=== PATIENT | female | born 1945 | race African-American/Black ===

== ENCOUNTER 2017-08-13 14:12 | Day surgery (SDC) | payer OTHER, MEDICAID ==
--- NOTE | 2017-08-13 09:26 | PDHPUP ---
History & Physical Update H&P update statement: This history and physical update is based on an assessment of the patient which was completed after admission or registration (within 24 hours), but prior to the surgery/procedure. H&P update: H&P reviewed & patient examined, no change in patient's condition since H&P completed
[2017-08-13] MEDS ORDERED: LR 1,000 ML IV ONE (14:27)
[2017-08-13] MEDS ORDERED: LIDOCAINE 1% 2 ML INJ ID PRN (14:27)
[2017-08-13 15:02] VITALS: PULSE 57
[2017-08-13] MEDS ORDERED: BUPIVACAINE 0.5% 10 ML SDV ONE (15:15)
[2017-08-13] MEDS ORDERED: NS 500 ML IV SCH ×2 (15:15→15:30)
[2017-08-13 15:55] LABS: PLATELET COUNT 213 10^3/uL (150-400)
--- NOTE | 2017-08-13 16:14 | PDANEPAE ---
ANE History of Present Illness 72 year old female for amputation of left index finger. ANE Past Medical History - Cardiovascular History Hx Hypertension: Yes Hx Arrhythmias: Yes Hx Chest Pain: No Hx Coronary Artery / Peripheral Vascular Disease: Yes Hx CHF / Valvular Disease: No Hx Palpitations: No Cardiovascular History Comment: PVD. htn. cad with 4 stents. paf. HIGH CHOL. left bka - Pulmonary History Hx COPD: No Hx Asthma/Reactive Airway Disease: No Hx Recent Upper Respiratory Infection: No Hx Oxygen in Use at Home: No Hx Sleep Apnea: No Sleep Apnea Screening Result - Last Documented: Negative Pulmonary History Comment: "spot on lung" - Neurologic History Hx Cerebrovascular Accident: Yes Hx Seizures: No Hx Dementia: No Neurologic History Comment: TIA. peripheral neuropathy - Endocrine History Hx Diabetes: Yes Endocrine History Comment: TYPE 2 - Renal History Hx Renal Disorders: Yes Renal History Comment: ESRD, on HD. saturday, saturday and saturday - Liver History Hx Hepatic Disorders: No Hepatic History Comment: 'FATTY LIVER'. PANCREATITIS - Neurological & Psychiatric Hx Hx Neurological and Psychiatric Disorders: No - Cancer History Hx Cancer: Yes Cancer History Comment: Breast R- R LUMPECTOMY 2010. followed by mastectomy. no chemo or radiation - Congenital Disorder History Hx Congenital Disorders: No - GI History Hx Gastrointestinal Disorders: Yes Gastrointestinal History Comment: Gastroparesis - Other Health History Other Health History: left pinky finger 10-17-16. infected on abx currently. wears glasses. FULL DENTURES - Chronic Pain History Chronic Pain: Yes (finger and hands) - Surgical History Prior Surgeries: left pinky finger amputated with [place] at [facility] 10-17;. Right toes amputated from foot. left BKA. Femoral popliteal bypass 2010. Mastectomy R. Hysterectomy. . tonsillectomy. bilateral carpal tunnel release anal fissure repair. X 13 SURG L FOOT. PHI CATARACTS ANE Review of Systems Review of systems is: negative Review of Systems: - Exercise capacity Exercise capacity: <4 METS METS (RN): 1 METS ANE Patient History - Allergies Allergies/Adverse Reactions: adhesive tape Allergy (Verified 08/12/17 15:46) ciprofloxacin [From Cipro] Allergy (Verified 08/12/17 15:46) dicyclomine Allergy (Verified 08/12/17 15:46) metformin Allergy (Verified 08/12/17 15:46) metoclopramide HCl [From Reglan] Allergy (Verified 08/12/17 15:46) TREMORS milk Allergy (Verified 08/12/17 15:46) JAYSON BANDAGES Allergy (Mild, Uncoded 06/01/13 20:13) Rash LACTOSE INTOL Allergy (Mild, Uncoded 06/01/13 20:13) LOOSE STOOLS - Home Medications Home medications: home medication list seen and reviewed Home Medications: Metoprolol Tartrate [Lopressor 25 mg (RX)] 12.5 mg PO BID 12/10/11 [Last Taken 08/13/17] Amiodarone HCl [Pacerone (*)] 200 mg PO DAILY 11/20/16 [Last Taken 1 Day Ago ~] Atorvastatin Calcium [Lipitor 40 mg (*)] 40 mg PO HS 11/20/16 [Last Taken 1 Day Ago ~08/12/17] Docusate Sodium [Stool Softener] 50 mg PO DAILY 11/20/16 [Last Taken 1 Day Ago ~ 08/12/17] Polyethylene Glycol 3350 [Miralax 17 gm (*)] 17 gm PO DAILY 11/20/16 [Last Taken 1 Day Ago ~08/12/17] Sennosides/Docusate Sodium [Senna-Docusate Sodium Tablet] 1 each PO BID [Last Taken 08/12/17] oxyCODONE IR [Oxycodone Ir (*)] 5 mg PO Q4H 11/20/16 [Last Taken 08/13/17] Neurontin 08/12/17 [Last Taken Unknown] Tylenol 325mg (*) 08/12/17 [Last Taken 08/13/17] - NPO status NPO Status: no food or drink >8 hours NPO Since - Liquids (Date): 08/13/17 NPO Since - Liquids (Time): 06:00 NPO Since - Solids (Date): 08/13/17 NPO Since - Solids (Time): 13:30 - Smoking Hx Smoking Status: Former smoker - Family Anes Hx Family Hx Anesthesia Complications: DAUGHTER- ITCHING W GEN ANESTH ANE Labs/Vital Signs - Labs Result Diagrams: 08/13/17 15:39 08/13/17 15:39 - Vital Signs Vital Signs: reviewed preoperatively; see RN documention for details Blood Pressure: 128/67 Heart Rate: 57 Respiratory Rate: 18 O2 Sat (%): 100 Height: 167.64 cm Weight: 65.317 kg ANE Physical Exam - Airway Neck exam: FROM Mallampati Score: Class 2 Mouth exam: poor dentition - Pulmonary Pulmonary: no respiratory distress - Cardiovascular Cardiovascular: regular rate and rhythym - ASA Status ASA Status: IV ANE Anesthesia Plan Anesthesia Plan: MAC Total IV Anesthesia: Yes
[2017-08-13] MEDS ORDERED: MIDAZOLAM 2 MG/2 ML VIAL ONE (16:25)
[2017-08-13] MEDS ORDERED: PROPOFOL 200 MG/20 ML VIAL ONE (16:25)
[2017-08-13] MEDS ORDERED: LIDOCAINE 1% 300 MG/30 ML SDV ONE (16:49)
[2017-08-13] MEDS ORDERED: fentaNYL 100 MCG/2 ML INJ IVP PRN (17:09)
[2017-08-13] MEDS ORDERED: NS 500 ML IV PRN (17:09)
[2017-08-13] MEDS ORDERED: NALOXONE HCL 0.4 MG/ML INJ IVP PRN (17:09)
[2017-08-13] MEDS ORDERED: BACITRACIN ZINC 14.2 GM OINTTUBE TP ONE (17:10)
--- NOTE | 2017-08-13 17:40 | POSTOPPROG ---
Post Op Note Date of Operation: 08/13/17 Surgeon: Remy Tripathi Anesthesiologist: Elvis Hernandez Anesthesia: IV Sedation Pre-op Diagnosis: left index finger gangrene Post-op Diagnosis: same Procedure: left index finger amputation, left thumb nail removal Findings: necrotic MIP/DIP Inf/Abcess present in the surg proc area at time of surgery?: No EBL: Minimal Specimen(s): phalynx
[2017-08-13 18:17] VITALS: RESP 16
--- NOTE | 2017-08-13 18:37 | GOP ---
[f rep st] OPERATIVE REPORT DATE OF OPERATION: 08/13/2017 SURGEON: Remy Tripathi MD ANESTHESIA: MAC. ANESTHESIOLOGIST: Elvis Hernandez MD PREOPERATIVE DIAGNOSIS: 1. End-stage renal disease. 2. Left upper extremity steal syndrome. 3. Left index finger gangrene. POSTOPERATIVE DIAGNOSIS: 1. End-stage renal disease. 2. Left upper extremity steal syndrome. 3. Left index finger gangrene. PROCEDURE PERFORMED: 1. Left index finger amputation. 2. Left thumb nail excision. FINDINGS: INDICATIONS: A 72-year-old female, with a longstanding history of end-stage renal disease and diabet es. She has suffered from symptoms of a steal syndrome. She has undergone a prior angioplasty with some improvement in her left hand vascularity. She has previously undergone a 5th ray amputation. S he has a distal index finger gangrene. She is undergoing surgical excision at this time. Risks and benefits were explained to her of bleeding, infection, wound failure, need for higher level amputatio n, as well as roles for fistula ligation. All questions were answered. She desires to proceed. Kaylin ross is also requesting her thumbnail to be removed given its ongoing pain and hyperkeratosis. DESCRIPTION OF PROCEDURE: Monitored anesthesia care was started. Digital blocks were applied upon t he thumb and index finger. A fishmouth incision was created along the index finger at the MP joint. Using electrocautery, soft tissues were taken down toward the MP joint proper. The nerves were rabago sected and allowed to retract. The arteries were divided using electrocautery. The soft tissues wer e also divided using electrocautery and the specimen removed intact. The defect was closed in layers with Vicryl suture and multiple interrupted simple nylon sutures. The thumb nail was loosened from the nail bed using a hemostat and manually avulsed. Remaining dry areas of eschar were removed, scat tered throughout bilateral hands. Satisfactory hemostasis was assured throughout the surgical sites. Sterile dressings were applied, and the patient taken to the recovery room awake uneventfully. /[id number]/MODL
[2017-08-13] MEDS ORDERED: oxyCODONE IR 5 MG TAB PO PRN (18:42)
[2017-08-13 20:51] VITALS: BP 130/64; TEMP 98.2; O2SAT 89
--- NOTE | 2017-08-14 13:39 | POSTANESTH ---
Post Anesthetic Evaluation Cardiovascular Status: Normal, Stable, Similar to Pre-Op Cond Respiratory Status: Similar to Pre-op Cond., Tx Decrease in SpO2 (Patient requires home O2 at baseline. (2L/min)) Level of Consciousness/Mental Status: Can Participate in Eval, Mildly Sleepy, Arousable Pain Control: Adequate, Prn Tx Ordered Nausea/Vomiting Control: Adequate, Prn Tx Ordered Complications Possibly Related to Anesthesia: None Noted
== END 2017-08-13 19:01 ==
LOC: FSGY 14:12
PROVIDERS: ATTEND Surgery
PROC: 0X6P0Z0 Detachment at Left Index Finger, Complete, Open Approach (ICD-10-PCS; principal; 2017-08-13 16:00)
PROC: 0HDQXZZ Extraction of Finger Nail, External Approach (ICD-10-PCS; principal; 2017-08-13 16:00)
DX: N18.6 End stage renal disease (principal); I70.268 Atherosclerosis of native arteries of extremities with gangrene, other extremity; I70.263 Atherosclerosis of native arteries of extremities with gangrene, bilateral legs; E13.9 Other specified diabetes mellitus without complications; F32.9 Major depressive disorder, single episode, unspecified; M79.646 Pain in unspecified finger(s); Z85.3 Personal history of malignant neoplasm of breast
CPT/HCPCS: J2250; J2704

== ENCOUNTER 2017-08-19 15:46 | Inpatient (IN) | payer OTHER, MEDICAID ==
--- NOTE | 2017-08-19 16:29 | EDPHY ---
H & P Stated Complaint: left hand pain s/p finger amputation [address] Tripathi Time Seen by Provider: 08/19/17 16:15 HPI/ROS: CHIEF COMPLAINT: Left hand pain post surgical amputation HISTORY OF PRESENT ILLNESS: 72-year-old female medical history significant for diabetes, renal dysfunction, postop day 5 post left 2nd and 5rd digit amputation secondary to gangrene by Dr. Remy Tripathi, arrives by ambulance from her half-way facility complaining of breakthrough pain to her left hand, new erythema. Pain not relieved with oral oxycodone. Patient is on a Saturday dialysis schedule receive dialysis this morning as normal. No erythema. No lymphangitic streaking. No fever no chills. No chest pain. No trauma. No urinary abnormality. Daughter, who arrives later in the patient's emergency department course, notes that the patient appears to be not acting her normal self. No slurred speech or gait instability but does appear to be experiencing new picking behavior and restlessness. REVIEW OF SYSTEMS: A ten point review of systems was performed and is negative with the exception of the items mentioned in the HPI PAST MEDICAL & SURGICAL HISTORY: Diabetes. Chronic kidney disease. Peripheral neuropathy. Atherosclerosis of [place] arteries of extremities with history of gangrene to the left 2nd and 3rd digit, postop day 5 SOCIAL HISTORY: Currently residing at a half-way facility PHYSICAL EXAM (Prior to examination, patient consented to physical exam, hands were washed and my usual and customary physical exam procedures followed) 1) GENERAL: Alert and oriented. Appears uncomfortable, requesting analgesia. Answering questions appropriately this 2) HEAD: Normocephalic, atraumatic 3) HEENT: Pupils equal, round, reactive to light bilaterally. Sclera anicteric. 4) NECK: Full range of motion, no meningeal signs. 5) LUNGS: Clear auscultation bilaterally, no wheezes, no rhonchi, no retractions. 6) HEART: Regular rate and rhythm, no murmur, no heave, no gallop. 7) ABDOMEN: No guarding, no rebound, no focal tenderness, 8) MUSCULOSKELETAL: Left upper extremity: Dressing taken down revealing surgical scars with no dehiscence, sutures in place, tender to palpation left 2nd 5th MCP with erythema and induration. Negative kanavel sign to the existing digits. no crepitus, no epitrochlear or axillary adenopathy. 9) BACK: No visual or palpable abnormality. 10) SKIN: No rash, no petechiae. 11) Psychiatric: Patient is oriented X 3, there is no agitation. 12) NEURO: Awake, alert, and oriented to person, place and time. Answers questions appropriately. There were no obvious focal neurologic abnormalities. No cerebellar dysfunction. Upper and lower extremities bilaterally with strength 5 / 5, reflexes 2+. DIFFERENTIAL DIAGNOSIS: In no particular include but limited to peripheral neuropathy, UTI, urosepsis, postsurgical pain, osteomyelitis, cellulitis, necrotizing fasciitis - Personal History Current Tetanus/Diphtheria Vaccine: Yes Current Tetanus Diphtheria and Acellular Pertussis (TDAP): Yes Tetanus Vaccine Date: unsure - Medical/Surgical History Hx Asthma: No Hx Chronic Respiratory Disease: No Hx Diabetes: Yes Hx Cardiac Disease: No Hx Renal Disease: Yes Hx Cirrhosis: No Hx Alcoholism: No Hx HIV/AIDS: No Hx Splenectomy or Spleen Trauma: No Other PMH: diabetes, neuropathy, amputation LLE, toes RLE, fingers LUE, renal failure/dialysis - Social History Smoking Status: Former smoker Constitutional: Initial Vital Signs Temperature (C) 36.5 C 08/19/17 15:59 Heart Rate 69 08/19/17 15:59 Respiratory Rate 18 08/19/17 15:59 Blood Pressure 134/48 H 08/19/17 15:59 O2 Sat (%) 93 08/19/17 15:59 O2 Delivery Mode Nasal Cannula O2 (L/minute) 2 Allergies/Adverse Reactions: adhesive tape Allergy (Verified 08/12/17 15:46) ciprofloxacin [From Cipro] Allergy (Verified 08/12/17 15:46) dicyclomine Allergy (Verified 08/12/17 15:46) metformin Allergy (Verified 08/12/17 15:46) metoclopramide HCl [From Reglan] Allergy (Verified 08/12/17 15:46) TREMORS milk Allergy (Verified 08/12/17 15:46) JAYSON BANDAGES Allergy (Mild, Uncoded 06/01/13 20:13) Rash LACTOSE INTOL Allergy (Mild, Uncoded 06/01/13 20:13) LOOSE STOOLS Home Medications: Medication Instructions Recorded Metoprolol Tartrate [Lopressor 25 12.5 mg PO BID 12/10/11 mg (RX)] Amiodarone HCl [Pacerone (*)] 200 mg PO DAILY 11/20/16 Atorvastatin Calcium [Lipitor 40 40 mg PO HS 11/20/16 mg (*)] Docusate Sodium [Stool Softener] 50 mg PO DAILY 11/20/16 Polyethylene Glycol 3350 [Miralax 17 gm PO DAILY 11/20/16 17 gm (*)] Sennosides/Docusate Sodium 1 each PO BID 11/20/16 [Senna-Docusate Sodium Tablet] oxyCODONE IR [Oxycodone Ir (*)] 5 mg PO Q4H 11/20/16 Neurontin 08/12/17 Tylenol 325mg (*) 08/12/17 Medical Decision Making ED Course/Re-evaluation: 4:29 p.m.: Old medical records reviewed. Care of patient under supervision of secondary supervising physician Dr Butt with whom I discussed case . 5:04 p.m.: I was informed by the nurse that the patient a brief episode of epistaxis and nasal clip was placed. I re-evaluated the patient at this time, she had taken her nasal clip off and was currently hemostatic. There is an area of friability right nostril with no active bleeding. 5:25 p.m.: Phone consultation with Dr. Remy Tripathi the patient's surgeon. There is erythema at her suture site. He recommended dose of vancomycin in the ER and discharged back to her half-way facility. The patient is on a Saturday dialysis schedule. Today is Saturday. She received dialysis this morning. 6:10 p.m.: Patient has a calculated creatinine clearance of 11. She has will subsequently be given vancomycin 15 milligrams/kilogram. 6:15 p.m. patient has return of right-sided epistaxis. I have placed TXA a soaked pledget and will re-evaluate patient. 7:10 p.m.: Consultation with hospitalist will admit patient for concerns over cellulitis to the left hand. Patient does not meet sepsis screening stick criteria 7:13 p.m.: Consultation with Dr. Remy Tripathi who will consult on the patient 7:16 pm nasal packing removed patient is hemostatic - Data Points Laboratory Results: Laboratory Results 03/19/18 16:30 18 16:30 08/19/17 08/19/17 08/19/17 19:00 16:30 16:30 WBC 25.42 10^3/uL H 10^3/uL (3.80-9.50) RBC 3.78 10^6/uL L 10^6/uL (4.18-5.33) Hgb 10.8 g/dL L g/dL (12.6-16.3) Hct 34.3 % L % (38.0-47.0) MCV 90.7 fL fL (81.5-99.8) MCH 28.6 pg pg (27.9-34.1) MCHC 31.5 g/dL L g/dL (32.4-36.7) RDW 15.9 % H % (11.5-15.2) Plt Count 206 10^3/uL 10^3/uL (150-400) MPV 10.2 fL fL (8.7-11.7) Neut % (Auto) 91.3 % H % (39.3-74.2) Lymph % (Auto) 2.0 % L % (15.0-45.0) [place] % (Auto) 5.2 % % (4.5-13.0) Eos % (Auto) 0.4 % L % (0.6-7.6) Baso % (Auto) 0.4 % % (0.3-1.7) Nucleat RBC Rel Count 0.0 % % (0.0-0.2) Absolute Neuts (auto) 23.22 10^3/uL H 10^3/uL (1.70-6.50) Absolute Lymphs (auto) 0.50 10^3/uL L 10^3/uL (1.00-3.00) Absolute Monos (auto) 1.32 10^3/uL H 10^3/uL (0.30-0.80) Absolute Eos (auto) 0.10 10^3/uL 10^3/uL (0.03-0.40) Absolute Basos (auto) 0.09 10^3/uL 10^3/uL (0.02-0.10) Absolute Nucleated RBC 0.00 10^3/uL 10^3/uL (0-0.01) Immature Gran % 0.7 % % (0.0-1.1) Immature Gran # 0.19 10^3/uL H 10^3/uL (0.00-0.10) Sodium 129 mEq/L L mEq/L (135-145) Potassium 4.1 mEq/L mEq/L (3.5-5.2) Chloride 89 mEq/L L mEq/L (97-110) Carbon Dioxide 25 mEq/l mEq/l (22-31) Anion Gap 15 mEq/L mEq/L (8-16) BUN 24 mg/dL H mg/dL (7-23) Creatinine 2.1 mg/dL H mg/dL (0.6-1.0) Estimated GFR 23 Glucose 106 mg/dL H mg/dL (70-100) Calcium 8.5 mg/dL mg/dL (8.5-10.4) Urine Color LUZ Urine Appearance MODERATELY TURBID Urine pH 7.0 (5.0-7.5) Ur Specific [place] 1.015 (1.002-1.030) Urine Protein 2+ H (NEGATIVE) Urine Ketones NEGATIVE (NEGATIVE) Urine Blood 2+ H (NEGATIVE) Urine Nitrate NEGATIVE (NEGATIVE) Urine Bilirubin NEGATIVE (NEGATIVE) Urine Urobilinogen NEGATIVE EU EU (0.2-1.0) Ur Leukocyte Esterase 3+ H (NEGATIVE) Urine RBC 25-50 /hpf H /hpf (0-3) Urine WBC 50-182 /hpf H /hpf (0-3) Ur Epithelial Cells 2+ /lpf H /lpf (NONE-1+) Ur Renal Epithelial Cell OCCASIONAL /hpf H /hpf (NONE SEEN) Urine Bacteria 3+ /hpf H /hpf (NONE SEEN) Urine Glucose NEGATIVE (NEGATIVE) Medications Given: Discontinued Medications Hydromorphone HCl (Dilaudid) 1 mg IVP EDNOW ONE Stop: 08/19/17 16:31 Last Admin: 08/19/17 16:42 Dose: Not Given Hydromorphone HCl (Dilaudid) 1 mg IVP EDNOW ONE Stop: 08/19/17 16:44 Last Admin: 08/19/17 16:44 Dose: 1 mg Vancomycin/Sodium Chloride (Vancomycin 1 Gm (Premix)) 250 mls @ 250 mls/hr IV EDNOW ONE PRN Reason: Protocol Stop: 08/19/17 19:10 Last Admin: 08/19/17 18:58 Dose: Not Given Vancomycin HCl 1 gm/ Sodium (Chloride) 250 mls @ 250 mls/hr IV ONCE ONE Stop: 08/19/17 19:59 Last Admin: 08/19/17 18:55 Dose: 250 mls Lorazepam (Ativan Injection) 1 mg IVP EDNOW ONE Stop: 08/19/17 16:31 Last Admin: 08/19/17 16:44 Dose: 1 mg Tranexamic Acid (Cyklokapron) 500 mg TP EDNOW ONE Stop: 08/19/17 18:15 Last Admin: 08/19/17 18:56 Dose: 500 mg Departure - Departure Disposition: [facility] Acute Clinical Impression: Cellulitis of left hand Urinary tract infection Qualifiers: Urinary tract infection type: acute cystitis Hematuria presence: with hematuria Qualified Code(s): N30.01 - Acute cystitis with hematuria Condition: Fair
[2017-08-19] MEDS ORDERED: LORazepam 2 MG/ML INJ IVP ONE (16:30)
[2017-08-19] MEDS ORDERED: HYDROmorphONE/DILAUDID 1 MG/ML INJ IVP ONE (16:30)
[2017-08-19] MEDS ORDERED: HYDROmorphONE/DILAUDID 2 MG/ML INJ ONE (16:37)
[2017-08-19] MEDS ORDERED: HYDROmorphONE/DILAUDID 2 MG/ML INJ IVP ONE (16:43)
[2017-08-19 17:39] LABS: PLATELET COUNT 206 10^3/uL (150-400)
[2017-08-19] MEDS ORDERED: VANCOMYCIN HCL/NORMAL SALINE 250 ML IV ONE (18:11)
[2017-08-19] MEDS ORDERED: TRANEXAMIC ACID 1,000 MG/10 ML VIAL TP ONE (18:14)
[2017-08-19] MEDS ORDERED: VANCOMYCIN 1 GM in NS 250 ML IV ONE (19:00)
[2017-08-19] MEDS ORDERED: D50W 25 GM/50 ML VIAL IVP PRN (22:55)
[2017-08-19] MEDS: oxyCODONE IR 5 MG TAB PO PRN (23:35)
--- NOTE | 2017-08-19 23:58 | GHP ---
[f rep st] HISTORY AND PHYSICAL DATE OF ADMISSION: 08/19/2017 CHIEF COMPLAINT: Left hand pain. HISTORY: The patient is a 72-year-old female with a history of a left upper extremity subclavian ann marie al syndrome, which resulted in left index finger gangrene. She underwent amputation with Dr. Tripathi on August 13. Yesterday, she developed worsening pain in the left hand with worsening erythema. Per ismael flores, she is more confused than normal. She had 2 brief episodes of epistaxis in the emergency ro om. She received hemodialysis this morning. Her medical condition is otherwise without change. PAST MEDICAL HISTORY: 1. End-stage renal disease, Saturday, Saturday, Saturday. 2. 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 3. Diabetes. 4. Peripheral vascular disease, status post left BKA and right transmetatarsal foot amputation. 5. Breast cancer. 6. Depression. 7. Diabetic neuropathy. 8. Atrial fibrillation. 9. Coronary artery disease. MEDICATIONS: Please see computerized record for full detailed list. ALLERGIES: Cipro. SOCIAL HISTORY: She is a permanent jail resident at [facility]. She has a daughter. carlos has a MOLST form that states DNR. REVIEW OF SYSTEMS: Complete review of systems obtained. Review of systems negative regarding consti tutional, HEENT, GI, pulmonary, cardiovascular, , hematology, skin, musculoskeletal, endocrine, and psych except for positives and negatives as in HPI. FAMILY HISTORY: Reviewed and noncontributory to the presenting complaint. PHYSICAL EXAMINATION: GENERAL: Well-developed, well-nourished female, in no acute distress. VITAL SIGNS: Temperature 36.9, pulse 65, blood pressure 129/46, saturating 98% on 2 L. EYES: Normal conj unctivae. Pupils reactive to light. ENT: Normal ears, nose. Hearing intact. Normal teeth. Oroph arynx moist. NECK: Trachea midline. No thyromegaly. CHEST: Normal . LUNGS: Clear to auscultation bilaterally. CARDIOVASCULAR: Regular rhythm. No murmur. 2+ lower extremity edema to the right lower extremity. ABDOMEN: Soft, nontender. No hepatosplenomegaly. SKIN: Her hand shows post amputation with sutures in place. No obvious purulent discharge. There is erythema and extrem e tenderness to palpation. MUSCULOSKELETAL: No cyanosis or clubbing. Strength is 5/5 upper and low er extremities. NEURO: Cranial nerves intact. Normal sensation to light touch. PSYCH: Alert and oriented x3. Normal affect. Normal judgment and insight. Normal memory. LABORATORY DATA: White count 25.4, 34.3, platelets 206. Sodium 129, potassium 4.1, chlor den 89, bicarb 25, BUN 24, creatinine 2.1, glucose 106. MEDICAL RECORDS REVIEWED: She was just discharged from Dr. Tripathi's service after a left finger amputat ion on August 13. ASSESSMENT AND PLAN: 1. Postoperative hand infection, status post amputation. Dr. Tripathi has been consulted and will see he r. Continue IV vancomycin. We will consult Infectious Disease. 2. End-stage renal disease. She received hemodialysis today. If she remains in the hospital, Nephr ology will need to be consulted as she is due for her next hemodialysis next Saturday. 3. Diabetes, diet controlled. We will check a hemoglobin A1c. 4. Peripheral vascular disease. Baby aspirin, and we will check lipid panel. 5. Metabolic encephalopathy. This is due to her infection. This should improve with adequate infec tion treatment. CODE STATUS: DNR. ADMISSION STATUS: We will admit to observation, and reevaluate tomorrow regarding ongoing need for h ospitalization. DVT PROPHYLAXIS: She is high risk. We will place her on subcu Lovenox. /[id number]/MODL
[2017-08-20] MEDS: oxyCODONE IR 5 MG TAB PO PRN ×4 (05:01→21:53)
[2017-08-20] MEDS: HEPARIN 5,000 UNIT/0.5 ML INJ SC SCH ×3 (05:09→21:53)
[2017-08-20 05:34] LABS: PLATELET COUNT 214 10^3/uL (150-400)
[2017-08-20] MEDS: HYDROmorphone HCL/NS 0.5 MG/ML SYR IVP PRN (05:56)
[2017-08-20] MEDS: INSULIN REGULAR HUMAN 100 UNIT/ML UNIT SC SCH ×4 (07:54→21:55)
[2017-08-20] MEDS: ASPIRIN EC 81 MG TAB PO SCH (09:42)
--- NOTE | 2017-08-20 10:13 | HOSPPROG ---
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 She had amputation w Dr Tripathi. She developed worsening pain in left hand w erythema. Today is my first encounter with the patient. Chart reviewed. Reviewed her care w Dr Oneal. *Left hand cellulitis/ post op infection -on clindamycin & Vancomycin -has crepitus -Dr Tripathi saw and evaluated -appreciate ID -evaluation of her fistula -will need a tunneled catheter for dialysis, but this is pending until infection managed *leukocytosis -due to the above *ESRD -Dr Oneal seeing her today -dialysis tomorrow *PVD -s/p BKA and right transmetatarsal foot amputation *Diabetes -morning glucose stable *Mild hyponatremia -follow labs *HTN -bp is low *Pain/significant due to the above -patient said morphine helps the most, have added this -also, prn Dilaudid has been added *DVT prophylaxis: heparin tid *Plan: patient will require another midnight stay to treat infection and further procedures; this will make her IP status. Will order a Palliative care consult. Subjective: Cheryl Miranda is tearful about the pain. Objective: Vital Signs Temp Pulse Resp BP Pulse Ox 37.2 C 60 18 108/80 99 08/20/17 08:15 08/20/17 08:15 08/20/17 08:15 08/20/17 08:15 08/20/17 08:15 Laboratory Results 08/20/17 05:15 08/20/17 05:15 08/19/17 08/20/17 08/21/17 05:59 05:59 05:59 Intake Total 850 Balance 850 - Physical Exam Constitutional: chronically ill appearing, No no apparent distress, No not in pain Eyes: PERRL Ears, Nose, Mouth, Throat: hearing normal Respiratory: no respiratory distress Skin: warm, other (left hand with eythema, swelling, extremely tender/ patient is requesting for her hand not to be touched) Musculoskeletal: generalized weakness Neurologic: AAOx3 Psychiatric: other (tearful) ICD10 Worksheet Patient Problems: Problems Problem Status Onset Cellulitis of left hand Acute Urinary tract infection Acute Anemia Active Cellulitis of foot Active Cellulitis of knee Active Diabetes mellitus type 2 Active Essential hypertension Active Gangrene of foot Active Peripheral arterial occlusive disease Active
[2017-08-20] MEDS: CLINDAMYCIN 600 MG/DEXTROSE 50 ML IV SCH ×3 (10:42→21:54)
--- NOTE | 2017-08-20 13:11 | GCON ---
[f rep st] CONSULTATION NEPHROLOGY CONSULTATION DATE OF CONSULTATION: 08/20/2017 REASON FOR CONSULTATION: Left hand postoperative infection and ischemia, history of end-stage renal disease. HISTORY OF PRESENT ILLNESS: The patient is a 72-year-old female with a past medical history signific ant for end-stage renal disease secondary to diabetes, along with severe peripheral vascular disease and multiple diabetic complications. She dialyzes under the care of Dr Nikhil Villaseñor at the [facility] on a Saturday, Saturday, Saturday schedule. The patient presents at this time with severe pain, erythema, and crepitus in the dorsum of her left hand following amputation of an ischemic left index finger. The patient is currently on the hospital ist service, and being followed by Dr Tripathi and Dr Jiang of the Infectious Disease service. The patient underwent the surgery on August 13, and presented on the with confusion, leukocytosis, and severe left hand pain. In her hand, she had erythema and crepitus. She has been treated with vancomycin. 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 The patient has no left uln ar artery. Her right radial artery does have a focal stenosis. It was angioplastied at [facility] last year, and again recently. In spite of this, she has had ongoing ischemic issues in t he right hand. The right hand has become more consistently painful. Relating to her dialysis, her runs have been stable. She has had stable hemodynamics. The patient i s quite debilitated at this point, and living in a retirement facility. Her quality of life has been greatly diminished in recent times. Currently, the patient is afebrile. The area of hand erythema has reportedly improved. She continue s to have some crepitus. Again, she is being followed closely by Dr. Tripathi and Dr. Roman. As relating to the above issues, we are asked by the Infectious Disease service to assist the patient's renal di agnosis and management of end-stage renal disease. PAST MEDICAL HISTORY: 1. End-stage renal disease, on hemodialysis on a Saturday, Saturday, Saturday schedule at the [facility] under the care of Dr Nikhil Villaseñor. 2. 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 3. Diabetes mellitus. 4. Peripheral vascular disease. 5. Breast cancer. 6. Depression. 7. Diabetic neuropathy. 8. Atrial fibrillation. 9. Coronary artery disease. CURRENT MEDICATIONS: Aspirin 81 mg daily, clindamycin IV q.8 hours, heparin 5000 units subcu q.8 jessica rs, Dilaudid p.r.n., insulin sliding scale, Oxy IR q.4 hours, vancomycin as prescribed. ALLERGIES: Ciprofloxacin. SURGICAL HISTORY: 1. Multiple arterial interventions. 2. Right foot transmetatarsal amputation. 3. Left AKA. 4. Foot amputations. 5. Femoral-popliteal bypass. 6. Mastectomy. 7. Hysterectomy. 8. . 9. Tonsillectomy. 10. Trigger finger release. 11. Carpal tunnel release. 12. Anal fissure repair. FAMILY HISTORY: Noncontributory. SOCIAL HISTORY: The patient is presently living at [facility]. A very supp ortive daughter is at bedside. She does not actively smoke cigarettes or drink alcohol. REVIEW OF SYSTEMS: The patient is having chills. Her appetite is stable. She denies headaches. Sh e wears corrective lenses. She states her vision has recently been blurry. She wears chronic oxygen at 2 L per nasal cannula. She denies rhinitis or sore throat. She denies cough or shortness of derick ath. She denies chest pain. She has chronic constipation. She is aneuric. She has chronic right l ower extremity edema. She has the aforementioned skin changes. She has diabetic neuropathy. PHYSICAL EXAM: VITAL SIGNS: Temperature is 37.2, pulse 60, blood pressure 108/80. EYES: Sclerae a re clear. OROPHARYNX: Edentulous and clear. NECK: No lymphadenopathy or thyromegaly. LUNGS: Tank ar to auscultation bilaterally. CARDIOVASCULAR: Irregular rhythm. ABDOMEN: Nontender. /RECTAL: Deferred. EXTREMITIES: 2 to 3+ right lower extremity edema. INTEGUMENT: The patient's left hand has an area of erythema extending on the dorsum approximately 4-5 cm. This apparently is improved s jessica yesterday. She does have crepitus over the dorsum of her left hand in the area of the incision. It is quite painful to touch. LABORATORY STUDIES: White count 27, hematocrit 32.4, platelets 214. Sodium 132, potassium 4, bicarb 26, creatinine 2.9. IMPRESSION AND PLAN: 1. Left hand postoperative infection and chronic ischemia. The patient is being treated with clinda mycin and vancomycin. She is being followed by Dr Tripathi and Dr Jiang. She appears to be clinically impr oving. She is having some mild delirium with this. 2. I did review her issues with Dr Villaseñor. At this point, we are in agreement with Dr Tripathi that the m ost appropriate course of action is ligation of her left upper extremity fistula. This would then re quire placement of a subclavian catheter. We will ensure her infection is under control before placi ng a tunneled catheter. This information was communicated with Dr Tripathi. 3. End-stage renal disease. The patient will dialyze tomorrow according to schedule. 4. Anemia. The patient's hemoglobin is appropriate and she does not require an MARY at this time. 5. Hypertension. This is at goal. PLAN OF CARE: I would agree that the patient's quality of life is very poor at this time. I would a gree with palliative care consultation. Thank you for allowing us to participate in the patient's care. We will continue following closely chi sullivan. /[id number]/MODL
--- NOTE | 2017-08-20 14:01 | GCON ---
[f rep st] CONSULTATION DATE OF CONSULTATION: 08/20/2017 REFERRING PHYSICIAN: Trina Chery MD REASON FOR CONSULTATION: Left hand pain and hallucinations. HISTORY OF PRESENT ILLNESS: This is a 72-year-old female with a past medical history significant for end-stage renal disease on dialysis Saturday, Saturday, and Saturday, followed by Dr. Villaseñor; subclavian steal syndrome to the left upper extremity; diabetes mellitus; peripheral vascular disease, who had a recent left index finger amputation after gangrene developed there last week. The amputation was d one on August 13. She was [facility] back to the [facility] and was sent back yesterday after incre asing pain in the left hand with increasing redness. Patient is sort of intermittently confused and is complaining of excruciating pain involving the left hand. She has also developed a blood blister on the palmar aspect. She came in with a white blood cell count of 25,000 with a left shift. Blood cultures in 2 sets were drawn, and they are pending. She had a urinalysis done, however, that was sh owing some pyuria although there was 2+ epithelial cells. Cultures are pending as well. She was giv en a dose of vancomycin yesterday evening. White blood cell count today is 27,000 with an ongoing le ft shift. She has a temperature of 99 today, and she continues to complain of increasing pain. Infe ctious Disease is now consulted for further evaluation and opinion. REVIEW OF SYSTEMS: GENERAL: She denies any fevers or shaking chills. HEAD: No headaches. EYES: She does have some change in vision, which is chronic. HEENT: No sore throat, difficulty swallowing , ear pain or drainage. CARDIOVASCULAR: No chest pain or rapid heartbeat. RESPIRATORY: No shortne ss of breath, cough, or sputum production. ABDOMEN: No nausea, vomiting, abdominal pain, or diarrhe a. : She does not make a lot of urine. EXTREMITIES: She is complaining of left hand pain extend ing down to the wrist. MUSCULOSKELETAL: As above. SKIN: Redness developing around her surgical si te. PAST MEDICAL HISTORY: Significant for end-stage renal disease, followed by Dr. Villaseñor with dialysis o n Saturday, Saturday, Saturday; subclavian steal syndrome to the left lower extremity; diabetes mellitus ; peripheral vascular disease; breast cancer; depression; diabetic neuropathy; atrial fibrillation; c oronary disease. PAST SURGICAL HISTORY: Significant for left fem-pop bypass, left BKA, mastectomy, hysterectomy, C-se ction, tonsillectomy, trigger finger release, carpal tunnel release, anal fissure repair, right foot amputation. ALLERGIES: Cipro with unknown reaction. Patient cannot give me any details. SOCIAL HISTORY: She lives in a fdc in [place]. Her daughter is local. She denies any s moking or alcohol. FAMILY HISTORY: Significant for diabetes mellitus. MEDICATIONS: As per AUG. PHYSICAL EXAMINATION: VITAL SIGNS: 37.2, pulse is 60, blood pressure 108/80, respiratory rate is 18 , saturations are 99% on 1 L O2 via nasal cannula. GENERAL: She is sitting up in bed complaining of excruciating pain involving her left hand and fingers. HEENT: Head is normocephalic, atraumatic. Eyes without conjunctival injection. No petechiae noted. Oropharynx is clear. CARDIOVASCULAR: S1, S2. Regular rate and rhythm. She has murmur appreciated. RESPIRATORY: Clear to auscultate bilate rally. No rhonchi or rales appreciated. ABDOMEN: Positive bowel sounds in all 4 quadrants. Soft, nontender, nondistended. EXTREMITIES: Right TMA with a heel wound, which is dry and crusted in natu re. No erythema noted there. Left BKA noted. Left hand with her 5th finger amputated and her index finger amputated as well. She has sutures in place with some hyperemia around the area, does not lo ok frankly cellulitic and it is not wildly hot or anything. It is mildly warm. She has swelling ext ending into the hand down to the wrist with some crepitus appreciated. There is a hemorrhagic bliste r on the palmar aspect which is tender to her. She has multiple chronic wounds all over her body. LABORATORIES: White blood cell count is 27.0, hemoglobin 10.5, platelets 214, neutrophil count is 88 %. Sodium 130, potassium 4.0, chloride 92, bicarb 26. BUN is 14, creatinine is 2.9. Urinalysis: 2 + ketones, 3+ leukocyte esterase, urine RBCs 25-50, urine WBCs 50-182, 2+ epithelial cells, 3+ bacter ia. Blood cultures x2 sets are pending. Urine culture pending. IMAGING: None has been done. ASSESSMENT: 1. Left hand pain with erythema and crepitus. 2. Leukocytosis with left shift. 3. Recent left index finger amputation. 4. Renal insufficiency with end-stage renal disease. PLAN: Patient had been given a dose of vancomycin yesterday. White blood cell count is higher than yesterday. Patient continues to complain of excruciating pain. She apparently does have a chronic p ain syndrome, so it is difficult to understand the gravity of her pain. At this point, would recomme nd a stat x-ray to assess for gas in the tissue. Will also keep in mind that she had a recent amputa tion. Will follow cultures closely. Will add clindamycin. Dr. Tripathi did open up a couple of sutures this morning. Fluid did not gush out at that point. I tried to see if we could express some fluid o ut, but this caused excruciating pain to the patient. Discussed whether a CT would help us with lidia tional information. Dr. Tripathi elected to hold off at this point. We will follow cultures closely. We will check a random vancomycin level at present. If it is less than 15, we will re-dose vancomycin. I thank you very much for providing this opportunity to care for your patient consultation. Carolina lozano rdinated with her RN and the Nephrology service. /[id number]/MODL
--- NOTE | 2017-08-20 14:49 | PDMN ---
Medical Necessity Medical necessity: change to IP; los>2mn for L hand cellulitis/ post op infection r/t L index finger amputation; requires IV abx, and dialysis, tunneled catheter when infection managed; comorbid ESRD, HTN, DM, PVD; per order and progress note 08/20/17
--- NOTE | 2017-08-20 18:41 | GCON ---
[f rep st] CONSULTATION DATE OF CONSULTATION: 08/20/2017 REASON FOR CONSULTATION: Left hand pain, possible wound infection. HISTORY OF PRESENT ILLNESS: 72-year-old female with a longstanding history of end-stage renal disease. She has a significant history of peripheral arterial disease, status post a remote left femoral above-knee popliteal artery bypass. She ultimately succumbed to a left below-knee amputation secondary to nonhealing diabetic infections. She has also undergone a right transmetatarsal amputation and is receiving dialysis through a left upper extremity basilic vein transposition fistula placed in 2011. She has had issues with ongoing steal syndrome with multiple digital amputations, most recently, her left index finger. Her vascular runoff discloses an occluded left ulnar artery with a stenotic radial artery. She was readmitted to the hospitalist service last evening with worsening [id number] hand pain and concerns for possible wound infection. Surgery has been requested for further recommendations. At the present time, patient reports a diffuse left hand pain which is chronic for her. She is without other specific complaints. PAST MEDICAL HISTORY: Breast cancer, diabetes, bilateral SFA occlusive disease , left upper extremity steal syndrome, history of gastritis, depression, diabetic neuropathy, atrial fibrillation, coronary artery disease. PAST SURGICAL HISTORY: Left upper extremity basilic vein transposition fistula , right foot and transmetatarsal amputation, left above-knee amputation, left femoral to above-knee popliteal artery bypass, mastectomy, hysterectomy, C- section, tonsillectomy, trigger finger release, carpal tunnel release, anal sphincterotomy. MEDICATIONS: Aspirin, clindamycin, vancomycin, insulin, OxyIR?, gabapentin. ALLERGIES: Ciprofloxacin, lactose, Bentyl, Reglan. SOCIAL HISTORY: Patient lives in a shelter facility. PHYSICAL EXAMINATION: VITAL SIGNS: Temperature 37, blood pressure 108/80, pulse 60, respirations 18. GENERAL: Patient is alert, appropriate, appears to be in her usual state of discomfort. HEART: Regular. LUNGS: Clear. ABDOMEN : Soft. EXTREMITIES: Left upper extremity incision healing nicely. No appreciable erythema, rather appropriate dorsal hand ecchymosis. Mild crepitus is present with suture removal. No fluid, purulence, or drainages is identified beneath her skin flaps. Palmar blister related to postsurgical edema is present. The hand is otherwise pink and warm. LABORATORY DATA: White count 27, hemoglobin 11, platelets 214. IMPRESSION: Chronic left upper extremity steal syndrome with progressively ischemic left hand, status post index finger amputation for gangrene. Her wound clinically shows no significant cellulitis or purulence. She has been empirically placed on vancomycin given her leukocytosis. Recommend increasing her previously recommended doses of gabapentin for her chronic neuropathy. Care plan was later discussed this morning with Dr. Oneal whose team is in support of fistula ligation at this point in time. This will require the patient to have a lifelong catheter placement for further hemodialysis needs. I would also recommend a palliative care consultation to discuss further care options given the patient's progressive physical decline and longstanding history of depression and generalized failure to thrive. Findings and recommendations were discussed at bedside with Dr. Jiang. /[id number]/MODL MTDKali
[2017-08-20] MEDS: GABAPENTIN 100 MG CAP PO SCH (21:54)
[2017-08-21 05:03] LABS: PLATELET COUNT 188 10^3/uL (150-400)
[2017-08-21] MEDS: HYDROmorphone HCL/NS 0.5 MG/ML SYR IVP PRN ×3 (06:22→15:11)
[2017-08-21] MEDS: CLINDAMYCIN 600 MG/DEXTROSE 50 ML IV SCH ×2 (06:22→18:25)
[2017-08-21] MEDS: HEPARIN 5,000 UNIT/0.5 ML INJ SC SCH ×3 (06:23→21:35)
[2017-08-21] MEDS: oxyCODONE IR 5 MG TAB PO PRN ×4 (06:26→22:27)
[2017-08-21] MEDS: ASPIRIN EC 81 MG TAB PO SCH (09:18)
[2017-08-21] MEDS: GABAPENTIN 100 MG CAP PO SCH ×3 (09:18→21:35)
[2017-08-21] MEDS: INSULIN REGULAR HUMAN 100 UNIT/ML UNIT SC SCH ×4 (09:19→21:50)
--- NOTE | 2017-08-21 12:09 | ASMTCMCOM ---
CM Note CM Note Notes: Patient admitted for an infected surgical site. She had her 2nd and 5th digits amputated by Dr Tripathi on 08/13/17(secondary to gangrene) and is complaining of pain and erythema to the site. Dr Tripathi, hospital medicine, nephrology, and ID are following. Patient lives at [facility]. She has a local daughter. She is a chronic dialysis patient on a MWF schedule at the [facility] (Dr Nikhil Villaseñor). A palliative care consult might be appropriate; I have notified hospitalist. Case Management will follow. Date Signed: 08/20/2017 03:07 PM Electronically Signed By:Gail Jim RN
--- NOTE | 2017-08-21 13:34 | SOAPPROG ---
SOAP Progress Note Assessment/Plan: Assessment: ESRD, HD today PVOD, multiple amputations Vascular steal syndrome from her AVF resulting in ischemic digits and amputations infected finger/hand, on vanco and Clindamycin deconditioned; consider PT/possible palliative care Plan: Ligate AVF Permanent tunneled HD catheter pain control antibiotics palliative care seems reasonable 08/21/17 13:31 Subjective: having a fair amount of pain in hand no cp sob nausea or vomiting tired, not sleeping well appetite not great energy poor spirits are, however, good Objective: Vital Signs Temp Pulse Resp BP Pulse Ox 36.6 C 61 18 118/61 92 08/21/17 12:35 08/21/17 12:35 08/21/17 12:35 08/21/17 12:35 08/21/17 12:35 Laboratory Results 08/21/17 04:50 08/20/17 08/21/17 08/22/17 05:59 05:59 05:59 Intake Total 450 Balance 450 Physical Exam - Physical Exam General Appearance: alert, other (chronically ill appearing) Respiratory: No rhonchi, No wheezing, No pleural rub Cardiac/Chest: regular rate, rhythm, edema, systolic murmur, No friction rub Abdomen: normal bowel sounds, non-tender, soft Skin: other (signs of infecton of L hand) Extremities: other (hand distal to fistula is very sore) Neuro/Psych: alert, oriented x 3 ICD10 Worksheet Patient Problems: Problems Problem Status Onset Cellulitis of left hand Acute Urinary tract infection Acute Anemia Active Cellulitis of foot Active Cellulitis of knee Active Diabetes mellitus type 2 Active Essential hypertension Active Gangrene of foot Active Peripheral arterial occlusive disease Active
--- NOTE | 2017-08-21 15:21 | ASMTCMCOM ---
CM Note CM Note Notes: Pt dialyzed today. Palliative scheduled tomorrow 08/22/17 at noon w dghtr and son participating by phone. Updates sent to [facility]. Pt moved to this afternoon. Date Signed: 08/21/2017 03:20 PM Electronically Signed By:HARLEY Landrum
--- NOTE | 2017-08-21 16:08 | HOSPPROG ---
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 She had amputation w Dr Tripathi. She developed worsening pain in left hand w erythema. 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 Objective: Vital Signs Temp Pulse Resp BP Pulse Ox 36.6 C 61 18 118/61 92 08/21/17 12:35 08/21/17 12:35 08/21/17 12:35 08/21/17 12:35 08/21/17 12:35 Laboratory Results 08/21/17 04:50 08/20/17 08/21/17 08/22/17 05:59 05:59 05:59 Intake Total 450 Balance 450 - Physical Exam Constitutional: chronically ill appearing, other (thin and frail) Eyes: PERRL Ears, Nose, Mouth, Throat: hearing normal Cardiovascular: regular rate and rhythym Respiratory: no respiratory distress Skin: other (left hand w redness, tenderness, swelling, painful even w gentle touch) Neurologic: AAOx3 Psychiatric: anxious ICD10 Worksheet Patient Problems: Problems Problem Status Onset Cellulitis of left hand Acute Urinary tract infection Acute Anemia Active Cellulitis of foot Active Cellulitis of knee Active Diabetes mellitus type 2 Active Essential hypertension Active Gangrene of foot Active Peripheral arterial occlusive disease Active
[2017-08-21] MEDS ORDERED: POLYETHYLENE GLYCOL 3350 17 GM PKT PO PRN (16:14)
--- NOTE | 2017-08-21 16:40 | SOAPPROG ---
SOAP Progress Note Assessment/Plan: Assessment:c/o ongoing hand pain. no other new issues. afebrile. wbc 19. in HD. left hand with appropriate postop swelling. palmar blisters unchanged. progressive steal syndrome with ongoing hand ischemia. her pain and leucocytosis are more likely related to ischemia rather than infection - her wound does not appear cellulitic to me. care plan reviewed with renal yesterday. will plan for fistula ligation and catheter placement later this week. will await cultures prior to placing a definitive tunnelled cath. patient in agreement. agree with palliative care plan Plan: 08/21/17 16:37 08/21/17 16:40 Objective: Vital Signs Temp Pulse Resp BP Pulse Ox 36.6 C 61 18 118/61 92 08/21/17 12:35 08/21/17 12:35 08/21/17 12:35 08/21/17 12:35 08/21/17 12:35 Laboratory Results 08/21/17 04:50 08/20/17 08/21/17 08/22/17 05:59 05:59 05:59 Intake Total 450 Balance 450 ICD10 Worksheet Patient Problems: Problems Problem Status Onset Cellulitis of left hand Acute Urinary tract infection Acute Anemia Active Cellulitis of foot Active Cellulitis of knee Active Diabetes mellitus type 2 Active Essential hypertension Active Gangrene of foot Active Peripheral arterial occlusive disease Active
[2017-08-21] MEDS: HYDROmorphONE/DILAUDID 2 MG TAB PO PRN (18:14)
[2017-08-22] MEDS: CLINDAMYCIN 600 MG/DEXTROSE 50 ML IV SCH ×4 (00:43→22:42)
[2017-08-22] MEDS: HYDROmorphONE/DILAUDID 2 MG TAB PO PRN ×3 (00:45→19:06)
[2017-08-22] MEDS: oxyCODONE IR 5 MG TAB PO PRN ×2 (04:59→15:03)
[2017-08-22 05:51] LABS: PLATELET COUNT 167 10^3/uL (150-400)
[2017-08-22] MEDS: HEPARIN 5,000 UNIT/0.5 ML INJ SC SCH ×3 (06:18→22:42)
--- NOTE | 2017-08-22 08:07 | SOAPPROG ---
SOAP Progress Note Assessment/Plan: Assessment: ESRD, HD yesterday went OK PVOD, multiple amputations Vascular steal syndrome from her AVF resulting in ischemic digits and amputations infected finger/hand, on vanco and Clindamycin deconditioned; consider PT/possible palliative care Plan: Ligate AVF Permanent tunneled HD catheter, will need transitional temporary HD cath pain control antibiotics palliative care seems reasonable 08/21/17 13:31 08/22/17 08:04 Subjective: resting arousable no new complaints tolerated HD OK Objective: Vital Signs Temp Pulse Resp BP Pulse Ox 36.7 C 63 18 115/58 L 97 08/22/17 04:00 08/22/17 04:00 08/22/17 04:00 08/22/17 04:00 08/22/17 04:00 Laboratory Results 08/22/17 05:27 08/22/17 05:27 08/21/17 08/22/17 08/23/17 05:59 05:59 05:59 Intake Total 450 200 Output Total 1700 Balance 450 -1500 Physical Exam - Physical Exam General Appearance: other (chronically ill appearing) Respiratory: No rales, No rhonchi, No wheezing Cardiac/Chest: regular rate, rhythm, systolic murmur, No gallop, No friction rub Abdomen: normal bowel sounds, non-tender, soft Skin: other (post-op erythematous changes) Extremities: other (multiple amputations both upper and lower extremities) Neuro/Psych: other (resting, arousable) ICD10 Worksheet Patient Problems: Problems Problem Status Onset Cellulitis of left hand Acute Urinary tract infection Acute Anemia Active Cellulitis of foot Active Cellulitis of knee Active Diabetes mellitus type 2 Active Essential hypertension Active Gangrene of foot Active Peripheral arterial occlusive disease Active
--- NOTE | 2017-08-22 10:44 | HOSPPROG ---
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 She had amputation w Dr Tripathi. She developed worsening pain in left hand w erythema. 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 reports pain in left hand. Not answering any other questions Objective: Vital Signs Temp Pulse Resp BP Pulse Ox 37.7 C 65 20 110/56 L 96 08/22/17 09:07 08/22/17 09:07 08/22/17 09:07 08/22/17 09:07 08/22/17 09:07 Laboratory Results 08/22/17 05:27 08/22/17 05:27 08/21/17 08/22/17 08/23/17 05:59 05:59 05:59 Intake Total 450 200 Output Total 1700 Balance 450 -1500 - Physical Exam Constitutional: no apparent distress, appears nourished, uncomfortable Ears, Nose, Mouth, Throat: moist mucous membranes, hearing normal, ears appear normal, no oral mucosal ulcers Cardiovascular: regular rate and rhythym, no murmur, rub, or gallop Respiratory: no respiratory distress, no rales or rhonchi, clear to auscultation Gastrointestinal: normoactive bowel sounds, soft, non-tender abdomen, no palpable masses Skin: other (erythema left hand without induration or trainage. wounds closed) ICD10 Worksheet Patient Problems: Problems Problem Status Onset Diabetes mellitus type 2 Active Essential hypertension Active Peripheral arterial occlusive disease Active Cellulitis of foot Active Gangrene of foot Active Anemia Active Cellulitis of knee Active Cellulitis of left hand Acute Urinary tract infection Acute
--- NOTE | 2017-08-22 10:59 | WOCRNPDOC ---
WOCRN Advanced Assessment Note - Skin Integrity Problem, Advanced Assess Right Heel/Residual Limb Pressure Injury Dressing Type: Open to Air Exudate Amount: None Exudate Characteristic(s): None Emily Wound Tissue: Scaly, Dry, Xerotic Emily Wound Swelling: None Wound Bed Color: Brown, Yellow Wound Bed Constitution: Adhered Slough (dried) Wound Edges: Well Defined Site Odor: None Site Measurement - Head-to-Toe Length X Width X Depth (cm): 4.6cmx4.4cmx0.5cm Pressure Injury Stage: Unstageable Pressure Injury Present on Admit: Yes (hospitalist notifed) Skin Integrity Problem Comment: Crater-like wound noted on posterior aspect of patient's R heel/residual limb, w/ dried, dessicated slough-filled wound bed. Location of wound indicative of pressure injury, currently unstageable. No periwound erythema or swelling evident. Nursing initiated off-loading of site by floating R heel off the edge of a pillow, and this intervention is appropriate to continue. Given patient's ERSD and history of vascular disease, goal directed at keeping wound stable and dry. Will have nursing paint w/ povidone/iodine BID.
[2017-08-22] MEDS: INSULIN REGULAR HUMAN 100 UNIT/ML UNIT SC SCH ×4 (11:44→21:22)
[2017-08-22] MEDS: GABAPENTIN 100 MG CAP PO SCH ×3 (11:45→22:42)
[2017-08-22] MEDS: ASPIRIN EC 81 MG TAB PO SCH (11:45)
--- NOTE | 2017-08-22 14:40 | ASMTCMCOM ---
CM Note CM Note Notes: Palliative care conference today; pt interested in [facility] palliative care. Referral sent through [employer] and discussed w/Moon from [facility]. She will speak w/family and let us know if family would like to meet during hospitalization. CM will follow. Date Signed: 08/22/2017 02:39 PM Electronically Signed By:Eileen Sierra RN
--- NOTE | 2017-08-22 17:54 | SOAPPROG ---
SOAP Progress Note Assessment/Plan: Assessment:no new overnight issues. c/o ongoing hand pain. afebrile. hand swelling/blisters unchanged. no erythema. diffuse tenderness with new eschar overlying 3rd MC. cx NTD. left arm steal syndrome with pain/leucocytosis secondary to ongoing ischemia. plan for fistula ligation and catheter after HD tomorrow. c/o ongoing hand pain. no other new issues. afebrile. wbc 19. in HD. left hand with appropriate postop swelling. palmar blisters unchanged. progressive steal syndrome with ongoing hand ischemia. her pain and leucocytosis are more likely related to ischemia rather than infection - her wound does not appear cellulitic to me. care plan reviewed with renal yesterday. will plan for fistula ligation and catheter placement later this week. will await cultures prior to placing a definitive tunnelled cath. patient in agreement. agree with palliative care plan Plan: 08/21/17 16:37 08/21/17 16:40 08/22/17 17:52 Objective: Vital Signs Temp Pulse Resp BP Pulse Ox 37.3 C 61 16 118/59 L 95 08/22/17 15:37 08/22/17 15:37 08/22/17 15:37 08/22/17 15:37 08/22/17 15:37 Laboratory Results 08/22/17 05:27 08/22/17 05:27 08/21/17 08/22/17 08/23/17 05:59 05:59 05:59 Intake Total 450 200 Output Total 1700 Balance 450 -1500 ICD10 Worksheet Patient Problems: Problems Problem Status Onset Cellulitis of left hand Acute Urinary tract infection Acute Anemia Active Cellulitis of foot Active Cellulitis of knee Active Diabetes mellitus type 2 Active Essential hypertension Active Gangrene of foot Active Peripheral arterial occlusive disease Active
[2017-08-23] MEDS: HYDROmorphONE/DILAUDID 2 MG TAB PO PRN ×2 (02:19→11:35)
[2017-08-23] MEDS: oxyCODONE IR 5 MG TAB PO PRN ×4 (04:28→21:35)
[2017-08-23] MEDS: CLINDAMYCIN 600 MG/DEXTROSE 50 ML IV SCH ×3 (05:18→21:30)
[2017-08-23] MEDS: HEPARIN 5,000 UNIT/0.5 ML INJ SC SCH ×3 (05:19→21:31)
[2017-08-23 05:49] LABS: PLATELET COUNT 162 10^3/uL (150-400)
[2017-08-23] MEDS: INSULIN REGULAR HUMAN 100 UNIT/ML UNIT SC SCH ×4 (07:40→21:34)
[2017-08-23] MEDS ORDERED: LIDOCAINE 1% *Not for Epidural 20 ML MDV ONE (10:00)
--- NOTE | 2017-08-23 10:36 | HOSPPROG ---
Hospitalist Progress Note Assessment/Plan: #Left hand cellulitis -after recent left index finger amputation -blood cx 08/19 remain negative. Will complete 7 days abx (Day 5) #LUE steal syndrome with ischemia requiring amputations -plan for fistula ligation and catheter placement #ESRD: last HD today #HTN: BP controlled #Disp: DC in morning Subjective: pain in left arm after surgery Objective: Vital Signs Temp Pulse Resp BP Pulse Ox 36.8 C 60 18 114/49 L 98 08/23/17 05:25 08/23/17 05:25 08/23/17 05:25 08/23/17 05:25 08/23/17 05:25 Laboratory Results 08/23/17 05:39 08/23/17 05:39 08/22/17 08/23/17 08/24/17 05:59 05:59 05:59 Intake Total 200 400 Output Total 1700 0 Balance -1500 400 - Physical Exam Constitutional: no apparent distress, chronically ill appearing Eyes: PERRL Ears, Nose, Mouth, Throat: moist mucous membranes Cardiovascular: regular rate and rhythym, other (tunneled HD catheter RU chest) Skin: warm Musculoskeletal: other (left hand with amputations, necrosis. Ulceration left palm) Neurologic: AAOx3 Psychiatric: interacting appropriately ICD10 Worksheet Patient Problems: Problems Problem Status Onset Cellulitis of left hand Acute Urinary tract infection Acute Anemia Active Cellulitis of foot Active Cellulitis of knee Active Diabetes mellitus type 2 Active Essential hypertension Active Gangrene of foot Active Peripheral arterial occlusive disease Active
[2017-08-23] MEDS: ASPIRIN EC 81 MG TAB PO SCH (11:40)
[2017-08-23] MEDS: GABAPENTIN 100 MG CAP PO SCH ×3 (11:40→20:10)
[2017-08-23] MEDS ORDERED: LR 1,000 ML IV ONE (11:55)
[2017-08-23] MEDS ORDERED: NS 1,000 ML IV ONE (12:07)
[2017-08-23] MEDS ORDERED: BUPIVACAINE 0.25% 30 ML SDV ONE (12:08)
[2017-08-23] MEDS ORDERED: HEPARIN 5,000 UNIT/0.5 ML INJ ONE (12:08)
[2017-08-23] MEDS ORDERED: LIDOCAINE 1% 300 MG/30 ML SDV ONE (12:08)
[2017-08-23] MEDS ORDERED: BACITRACIN ZINC 0.5 OZ OINTTUBE TP ONE (12:08)
[2017-08-23] MEDS ORDERED: IOTHALAMATE MEG (CONRAY) 50 ML VIAL IV ONE (12:09)
[2017-08-23] MEDS ORDERED: PAPAVERINE HCL 60 MG/2 ML SDV ONE (12:09)
--- NOTE | 2017-08-23 12:57 | SOAPPROG ---
SOAP Progress Note Assessment/Plan: Assessment/Plan: The patient is a 72 y/o F with a known h/o severe vascular disease and ESRD on HD with left steal syndrome 2/2 to AVF. ESRD on HD -HD today, tolerated well with 2kg UF -plan for fistula ligation 12:45pm -will need HD catheter per IR -will maintain MWF schedule, PARDEEP Laf as outpt L had steal -h/o multiple amputations -on clinda for possible cellulitis -blood cultures negative to date -consideration of palliative care HTN/vol -continue to modulate sodium with UF -BP's controlled 08/23/17 13:27 Subjective: Ready for procedure. No events overnight. Objective: Vital Signs Temp Pulse Resp BP Pulse Ox 36.9 C 75 17 128/84 H 96 08/23/17 12:44 08/23/17 12:44 08/23/17 12:44 08/23/17 12:44 08/23/17 12:44 Laboratory Results 08/23/17 05:39 08/23/17 05:39 08/22/17 08/23/17 08/24/17 05:59 05:59 05:59 Intake Total 200 400 Output Total 1700 0 Balance -1500 400 Physical Exam - Physical Exam General Appearance: WD/WN, alert, mild distress EENT: PERRL/EOMI, normal ENT inspection, pharynx normal Neck: non-tender, full range of motion, supple Respiratory: lungs clear, normal breath sounds Cardiac/Chest: normal peripheral pulses, regular rate, rhythm, edema Abdomen: normal bowel sounds, non-tender, soft Skin: cyanosis, other (L hand ischemia with amputations, AVF) ICD10 Worksheet Patient Problems: Problems Problem Status Onset Cellulitis of left hand Acute Urinary tract infection Acute Anemia Active Cellulitis of foot Active Cellulitis of knee Active Diabetes mellitus type 2 Active Essential hypertension Active Gangrene of foot Active Peripheral arterial occlusive disease Active
--- NOTE | 2017-08-23 13:02 | PDANEPAE ---
ANE History of Present Illness h/o ESRD, LUE gangrene p/f AVF ligation and IJ tunneled catheter placement ANE Past Medical History - Cardiovascular History Hx Hypertension: Yes Hx Arrhythmias: Yes Hx Chest Pain: No Hx Coronary Artery / Peripheral Vascular Disease: Yes Hx CHF / Valvular Disease: No Hx Palpitations: No Cardiovascular History Comment: PVD. htn. cad with 4 stents. paf. HIGH CHOL. left bka - Pulmonary History Hx COPD: No Hx Asthma/Reactive Airway Disease: No Hx Recent Upper Respiratory Infection: No Hx Oxygen in Use at Home: No Hx Sleep Apnea: No Sleep Apnea Screening Result - Last Documented: Negative Pulmonary History Comment: "spot on lung" - Neurologic History Hx Cerebrovascular Accident: Yes Hx Seizures: No Hx Dementia: No Neurologic History Comment: TIA. peripheral neuropathy - Endocrine History Hx Diabetes: Yes Hypothyroid: No Hyperthyroid: No Obesity: no Endocrine History Comment: TYPE 2 - Renal History Hx Renal Disorders: Yes Renal History Comment: ESRD, on HD. saturday, saturday and saturday - Liver History Hx Hepatic Disorders: No Hepatic History Comment: 'FATTY LIVER'. PANCREATITIS - Neurological & Psychiatric Hx Hx Neurological and Psychiatric Disorders: No - Cancer History Hx Cancer: Yes Cancer History Comment: Breast R- R LUMPECTOMY 2010. followed by mastectomy. no chemo or radiation - Congenital Disorder History Hx Congenital Disorders: No - GI History Hx Gastrointestinal Disorders: Yes Gastrointestinal History Comment: Gastroparesis - Other Health History Other Health History: left pinky finger 10-17-16. infected on abx currently. wears glasses. FULL DENTURES - Chronic Pain History Chronic Pain: Yes (finger and hands) - Surgical History Prior Surgeries: left pinky finger amputated with [place] [facility] 10-17;. Right toes amputated from foot. left BKA. Femoral popliteal bypass 2010. Mastectomy R. Hysterectomy. . tonsillectomy. bilateral carpal tunnel release anal fissure repair. X 13 SURG L FOOT. PHI CATARACTS ANE Review of Systems Review of systems is: negative Review of Systems: - Exercise capacity Exercise capacity: <4 METS ANE Patient History - Allergies Allergies/Adverse Reactions: adhesive tape Allergy (Verified 08/12/17 15:46) ciprofloxacin [From Cipro] Allergy (Verified 08/12/17 15:46) dicyclomine Allergy (Verified 08/12/17 15:46) metformin Allergy (Verified 08/12/17 15:46) metoclopramide HCl [From Reglan] Allergy (Verified 08/12/17 15:46) TREMORS milk Allergy (Verified 08/12/17 15:46) JAYSON BANDAGES Allergy (Mild, Uncoded 06/01/13 20:13) Rash LACTOSE INTOL Allergy (Mild, Uncoded 06/01/13 20:13) LOOSE STOOLS - Home Medications Home medications: home medication list seen and reviewed Home Medications: Aspercream With Lidocaine 1 marry TP TID PRN 08/19/17 [Last Taken Unknown] Bisacodyl [Dulcolax] 10 mg RC DAILY PRN 08/19/17 [Last Taken Unknown] Loperamide HCl [Imodium 2 mg (*)] 2 mg PO QID PRN 08/19/17 [Last Taken Unknown] Polyethylene Glycol 3350 [Miralax 17 gm (*)] 17 gm PO DAILY PRN 08/19/17 [Last Taken Unknown] Simethicone 180 mg PO DAILY PRN 08/19/17 [Last Taken Unknown] oxyCODONE IR [Oxycodone Ir (*)] 10 mg PO Q4 PRN 08/19/17 [Last Taken Unknown] - NPO status NPO Since - Liquids (Date): 08/23/17 NPO Since - Liquids (Time): 00:00 NPO Since - Solids (Date): 08/23/17 NPO Since - Solids (Time): 00:00 - Smoking Hx Smoking Status: Former smoker - Family Anes Hx Family Hx Anesthesia Complications: DAUGHTER- ITCHING W GEN ANESTH ANE Labs/Vital Signs - Labs Result Diagrams: 08/23/17 05:39 08/23/17 05:39 - Vital Signs Blood Pressure: 128/84 Heart Rate: 75 Respiratory Rate: 17 O2 Sat (%): 96 Height: 167.64 cm Weight: 70.8 kg ANE Physical Exam - Airway Neck exam: decreased ROM Mallampati Score: Class 1 Mouth exam: normal dental/mouth exam - Pulmonary Pulmonary: no respiratory distress - Cardiovascular Cardiovascular: regular rate and rhythym - ASA Status ASA Status: IV ANE Anesthesia Plan Anesthesia Plan: GA with mask
[2017-08-23] MEDS ORDERED: PROPOFOL 200 MG/20 ML VIAL ONE ×2 (13:05→14:41)
[2017-08-23] MEDS ORDERED: fentaNYL 100 MCG/2 ML INJ ONE (13:05)
[2017-08-23] MEDS ORDERED: LIDOCAINE 2% 5 ML SDV ONE (13:08)
[2017-08-23] MEDS ORDERED: PHENYLEPHRINE HCL 100 MCG/ML SYR ONE (14:08)
[2017-08-23] MEDS ORDERED: oxyCODONE IR 5 MG TAB PO PRN (15:04)
[2017-08-23] MEDS ORDERED: ALBUTEROL 3 ML DEYVIAL IH PRN (15:04)
[2017-08-23] MEDS ORDERED: HYDROCODONE/APAP 5/325 TAB PO PRN (15:04)
[2017-08-23] MEDS ORDERED: fentaNYL 100 MCG/2 ML INJ IVP PRN (15:04)
[2017-08-23] MEDS ORDERED: ONDANSETRON 4 MG/2 ML VIAL IVP PRN (15:04)
[2017-08-23] MEDS ORDERED: NALOXONE HCL 0.4 MG/ML INJ IVP PRN (15:04)
[2017-08-23] MEDS ORDERED: ACETAMINOPHEN 500 MG TAB PO PRN (15:04)
--- NOTE | 2017-08-23 15:06 | POSTANESTH ---
Post Anesthetic Evaluation Cardiovascular Status: Normal, Stable Respiratory Status: Normal, Stable Level of Consciousness/Mental Status: Can Participate in Eval Pain Control: Adequate, Prn Tx Ordered Nausea/Vomiting Control: Adequate, Prn Tx Ordered Complications Possibly Related to Anesthesia: None Noted
[2017-08-23] MEDS ORDERED: HYDROmorphONE/DILAUDID 2 MG/ML INJ ONE (16:18)
[2017-08-23] MEDS: HYDROmorphONE/DILAUDID 2 MG/ML INJ IVP PRN ×3 (16:21→16:45)
--- NOTE | 2017-08-23 17:28 | POSTOPPROG ---
Post Op Note Date of Operation: 08/23/17 Surgeon: Remy Tripathi Anesthesiologist: Mat Leggett Anesthesia: IV Sedation Pre-op Diagnosis: Ischemic left hand secondary to vascular steal syndrome Post-op Diagnosis: Same Procedure: RIJ tunelled HD cath with US/Fluoro, ligation of LUE AVF Inf/Abcess present in the surg proc area at time of surgery?: No EBL: Minimal Specimen(s): none
--- NOTE | 2017-08-23 18:47 | GOP ---
[f rep st] OPERATIVE REPORT DATE OF OPERATION: 08/23/2017 SURGEON: Remy Tripathi MD ANESTHESIA: MAC. ANESTHESIOLOGIST: Dr. Leggett. PREOPERATIVE DIAGNOSIS: Ischemic left hand secondary to vascular steal syndrome. POSTOPERATIVE DIAGNOSIS: Ischemic left hand secondary to vascular steal syndrome. PROCEDURE PERFORMED: 1. Right internal jugular tunneled hemodialysis catheter placement with ultrasound and fluoroscopic guidance. 2. Ligation of left arm brachial basilic transposition fistula. FINDINGS: See below. INDICATIONS: 72-year-old female admitted with progressive left hand ischemia and intractable pain secondary to a long-standing basilic vein transposition fistula steal syndrome. She has undergone multiple digital amputations and is in threat of further limb loss. She is undergoing the above surgical interventions at this time. Risks and benefits were explained of bleeding, infection, pneumothorax, as well as need for higher level amputations. All questions were answered. She desires to proceed. DESCRIPTION OF PROCEDURE: After monitored anesthesia was started, the right neck and chest were infiltrated with 1% lidocaine and 0.5% Marcaine. The jugular vein was directly punctured using ultrasound guidance. A guidewire passed smoothly into the atrium, which was confirmed using fluoroscopy. A counter incision was made on the chest wall. The vein was serially dilated under direct fluoroscopic visualization and the tunneled palindrome catheter passed into the atrial junction without resistance. There was a smooth tapering within the neck as well as satisfactory terminal positioning above the heart. The catheter withdrew easily and was flushed with heparinized saline solution. The puncture site was closed with a Monocryl suture followed by Dermabond. The catheter secured to the skin with a Prolene suture. Attention was directed to the left arm. Local anesthetic was infiltrated along the prior brachial artery anastomotic site. The AV fistula was circumferentially dissected out. This was taken down to the anastomotic site where a vascular clamp was applied. The vein was transected, with both proximal and distal ends being oversewn with a running [id number] Prolene suture. Satisfactory hemostasis was assured throughout the defect. The wound was closed in layers with absorbable sutures followed by Dermabond. The patient was taken to Recovery awake, uneventfully with a warm extremity. /[id number]/MODL MTDD
[2017-08-23] MEDS: BACITRACIN OINTMENT 1 PACKET TP SCH (21:30)
[2017-08-24 04:57] LABS: PLATELET COUNT 156 10^3/uL (150-400)
[2017-08-24] MEDS: HEPARIN 5,000 UNIT/0.5 ML INJ SC SCH ×2 (05:41→13:20)
[2017-08-24] MEDS: CLINDAMYCIN 600 MG/DEXTROSE 50 ML IV SCH ×2 (05:41→13:19)
[2017-08-24] MEDS: oxyCODONE IR 5 MG TAB PO PRN ×2 (06:43→11:26)
[2017-08-24] MEDS: GABAPENTIN 100 MG CAP PO SCH (09:12)
[2017-08-24] MEDS: ASPIRIN EC 81 MG TAB PO SCH (09:12)
[2017-08-24] MEDS: BACITRACIN OINTMENT 1 PACKET TP SCH (09:13)
[2017-08-24] MEDS: HYDROmorphONE/DILAUDID 2 MG TAB PO PRN ×2 (09:13→13:19)
[2017-08-24] MEDS: INSULIN REGULAR HUMAN 100 UNIT/ML UNIT SC SCH ×2 (09:15→11:42)
--- NOTE | 2017-08-24 10:16 | SOAPPROG ---
SOAP Progress Note Assessment/Plan: Assessment/Plan: The patient is a 72 y/o F with a known h/o severe vascular disease and ESRD on HD with left steal syndrome 2/2 to AVF. ESRD on HD -HD yesterday, may resume MWF at [facility] with Dr. Villaseñor -s/p ligation of AVF with TDC placement, vascular surgery appreciated L had steal -h/o multiple amputations -on clinda for possible cellulitis, will complete 7-day course -blood cultures negative to date -consideration of palliative care HTN/vol -continue to modulate sodium with UF -BP's controlled 08/24/17 10:14 Subjective: Patient POD#1, feeling well this am. States she is ready to go home. Objective: Vital Signs Temp Pulse Resp BP Pulse Ox 36.8 C 61 17 116/44 L 95 08/24/17 07:31 08/24/17 07:31 08/24/17 07:31 08/24/17 07:31 08/24/17 07:31 Laboratory Results 08/24/17 04:44 08/24/17 04:44 08/23/17 08/24/17 08/25/17 05:59 05:59 05:59 Intake Total 400 1000 Output Total 0 3 Balance 400 997 Physical Exam - Physical Exam General Appearance: WD/WN, alert, no apparent distress EENT: PERRL/EOMI, normal ENT inspection Neck: non-tender, full range of motion, supple Respiratory: chest non-tender, lungs clear, decreased breath sounds Cardiac/Chest: regular rate, rhythm, edema Abdomen: normal bowel sounds, non-tender, soft Skin: normal color, warm/dry, cyanosis (LUE blackened eschar with amputations, bandages, no bleeding) Extremities: swelling (LUE, pulses intact), other (R TDC in place) Neuro/Psych: alert, normal mood/affect, oriented x 3 ICD10 Worksheet Patient Problems: Problems Problem Status Onset Cellulitis of left hand Acute Urinary tract infection Acute Anemia Active Cellulitis of foot Active Cellulitis of knee Active Diabetes mellitus type 2 Active Essential hypertension Active Gangrene of foot Active Peripheral arterial occlusive disease Active
--- NOTE | 2017-08-24 10:36 | SOAPPROG ---
SOAP Progress Note Assessment/Plan: Assessment:hand significantly improved. pain better. able to move wrist and fingers. no complaints. afebrile. appropriate hand and digit edema. no erythema. incision all clean. catheter secure. eschar clean. left arm steal syndrome s/p fistula ligation - pain improved - leucocytosis secondary to ischemia/necrosis rather than infection - agree with discontinuation of ABX after empiric 7d course - will allow left hand eschar to mature/evolve - may require future debridement/higher level amp still unfortunately. no new overnight issues. c/o ongoing hand pain. afebrile. hand swelling/ blisters unchanged. no erythema. diffuse tenderness with new eschar overlying 3rd MC. cx NTD. left arm steal syndrome with pain/leucocytosis secondary to ongoing ischemia. plan for fistula ligation and catheter after HD tomorrow. c/o ongoing hand pain. no other new issues. afebrile. wbc 19. in HD. left hand with appropriate postop swelling. palmar blisters unchanged. progressive steal syndrome with ongoing hand ischemia. her pain and leucocytosis are more likely related to ischemia rather than infection - her wound does not appear cellulitic to me. care plan reviewed with renal yesterday. will plan for fistula ligation and catheter placement later this week. will await cultures prior to placing a definitive tunnelled cath. patient in agreement. agree with palliative care plan Plan: 08/21/17 16:37 08/21/17 16:40 08/22/17 17:52 08/24/17 10:31 Objective: Vital Signs Temp Pulse Resp BP Pulse Ox 36.8 C 61 17 116/44 L 95 08/24/17 07:31 08/24/17 07:31 08/24/17 07:31 08/24/17 07:31 08/24/17 07:31 Laboratory Results 08/24/17 04:44 08/24/17 04:44 08/23/17 08/24/17 08/25/17 05:59 05:59 05:59 Intake Total 400 1000 Output Total 0 3 Balance 400 997 ICD10 Worksheet Patient Problems: Problems Problem Status Onset Cellulitis of left hand Acute Urinary tract infection Acute Anemia Active Cellulitis of foot Active Cellulitis of knee Active Diabetes mellitus type 2 Active Essential hypertension Active Gangrene of foot Active Peripheral arterial occlusive disease Active
--- NOTE | 2017-08-24 10:44 | PDIAF ---
- Diagnosis Diagnosis: left hand ischemia Code Status: Do Not Resuscitate - Medication Management Discharge Medications: Medications to Continue on Transfer Aspercream With Lidocaine 1 marry TP TID PRN 08/19/17 [Last Taken Unknown] Bisacodyl [Dulcolax] 10 mg RC DAILY PRN 08/19/17 [Last Taken Unknown] Loperamide HCl [Imodium 2 mg (*)] 2 mg PO QID PRN 08/19/17 [Last Taken Unknown] Polyethylene Glycol 3350 [Miralax 17 gm (*)] 17 gm PO DAILY PRN 08/19/17 [Last Taken Unknown] Simethicone 180 mg PO DAILY PRN 08/19/17 [Last Taken Unknown] oxyCODONE IR [Oxycodone Ir (*)] 10 mg PO Q4 PRN 08/19/17 [Last Taken Unknown] Bacitracin Ointment 1 marry TP BID pkt 08/24/17 [Last Taken Unknown] Clindamycin 450 mg PO Q8 #15 cap 08/24/17 [Last Taken Unknown] Gabapentin [Neurontin 100 MG (*)] 100 mg PO TID cap 08/24/17 [Last Taken Unknown] Polyethylene Glycol 3350 [Miralax 17 gm (*)] 17 gm PO DAILY PRN pkt 08/24/17 [ Last Taken Unknown] Sennosides [Senna] 8.8 mg PO DAILY #30 ml 08/24/17 [Last Taken Unknown] Discharge Medications: Refer to the Discharge Home Medication list for PRN reason. - Orders Services needed: Registered Nurse, Certified Professor Of Food Biochemistry, Physical Therapy Diet Recommendation: potassium restricted Diet Texture: Regular Texture Diet Wound Care Instructions: Wound care orders for R heel (residual limb): to be done twice daily. 1) paint R heel wound w/ Betadine (Povidone/Iodine) swabs BID. 2) float R heel at all times, so there is no contact between her skin and the mattress. - Follow Up Care Current Providers and Referrals: Remy Tripathi MD [Medical Doctor] - Ralph Villaseñor MD [Medical Doctor] - Patient,NotPresent [Unknown] - As per Instructions
--- NOTE | 2017-08-24 11:09 | GDS ---
[f rep st] DISCHARGE SUMMARY DISCHARGE DIAGNOSIS: 1. End-stage renal disease, on dialysis Saturday, Saturday, Saturday. 2. Hypervolemic hyponatremia. 3. Hypertension. 4. Vascular steal syndrome. PROCEDURES: 1. Ligation of left arm brachial basilic transposition fistula. 2. Right tunneled hemodialysis catheter, 08/23/2017. 3. Chronic pain, on opioids. 4. Constipation. 5. Questionable left hand cellulitis. 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 Tripathi. Day prior to admission, she developed worsening pain in the hand with redness. Per daughter, she was more confused. HOSPITAL COURSE: 1. Concern for postoperative cellulitis: Recent amputation of left 1st digit. Patient was initially started on vancomycin and clindamycin. The redness appears to be more due to ischemia. Will not continue abx as skin changes likely due to ischemia. Completed 5 days abx. Blood cultures remained negative. Resume wound care at discharge. 2. Left upper extremity subclavian steal syndrome: Has resulted in ischemia and subsequent amputations. She underwent ligation of left upper extremity fistula by Dr. Tripathi. 3. End-stage renal disease: Last HD yesterday without issue. She will follow up with Dr. Villaseñor on her regular day, Saturday. 4. Diabetes: Sugars controlled here off medications. 5. Coronary artery disease: Continue aspirin. 6. Constipation secondary to chronic opioid use: Continue MiraLAX. Added senna. 7. Chronic pain: Will resume her home oxycodone and gabapentin, renally dosed. 8. Diet: Low potassium. 9. Goals. Patient was evaluated by Palliative Care, [facility] outpatient. 10. Leukocytosis: 21 from 18 today. Remains afebrile, negative blood and urine cultures. No signs of PNA. Low suspicion for infection, likely to due ischemia. Close monitoring at [facility] DISPOSITION: Patient is stable for discharge back to [facility] with wound care. NEW MEDICATIONS: Senna FOLLOW UP: 1. Dr. Tripathi. 2. Dr. Villaseñor for dialysis. 3. Repeat CBC, monitor for fever PHYSICAL EXAMINATION: VITAL SIGNS: Today, temperature 36.8, blood pressure 116 /44, heart rate 60, respirations 17, 95% on 2 L. GENERAL: Chronically ill appearing. No acute distress, smiling. HEENT: PERRLA. Moist mucous membranes. CARDIOVASCULAR: Regular rate and rhythm. Right chest with tunneled catheter line. LUNGS: Clear, diminished at the bases. ABDOMEN: Soft, nontender, nondistended. Positive bowel sounds. SKIN: Left hand with 1st and 2nd fingers amputated with eschar, erythema. Wound over dorsal aspect is dressed. Pulses intact. NEUROLOGIC: 2 through 12 intact. PSYCHIATRIC: Alert and oriented x3. /[id number]/MODL MTDD
[2017-08-24 11:51] VITALS: BP 122/60
--- NOTE | 2017-08-24 12:24 | ASMTLACE ---
LACE Length of stay for Answers: 4-6 days current admission Acuity / Level of Answers: Yes Care: Did the patient have an inpatient admission? Comorbidities - select Answers: Coronary Artery Disease all that apply Diabetes (uncontrolled or controlled) Moderate or severe liver or renal disease Other Notes: CKD # of Emergency department Answers: 1-2 visits in the last 6 months Social determinants Answers: Mental health diagnosis (anxiety, depression, pers onality disorders, etc.) Score: 19 Date Signed: 08/24/2017 12:24 PM Electronically Signed By:Nehal Easley RN
--- NOTE | 2017-08-24 12:28 | ASDISCHSUM ---
Discharge Information Plan Status:SNF Medically Cleared to Leave:08/24/2017 Discharge Date:08/24/2017 03:10 PM D/C Disposition:Custodial Facility ADT D/C Disposition:Custodial Facility Projected Discharge Date:08/23/2017 11:00 AM Transportation at D/C:ALS/BLS Discharge Delay Reason: Follow-Up Date:08/23/2017 11:00 AM Discharge Slot: Final Diagnosis: Placement Information Referral Type:*Long-Term/SNF Referral ID:[id number] Provider Name:[facility] [place] Address 1:[address] Address 2: City:[place] Selection Factors: State:[place] Referral Type:Palliative Care Referral ID:[id number] Provider Name:[facility] Address 1:[address] Phone Number: Address 2: Fax Number: [facility] Selection Factors: State:[place] Patient Contact Information Contact Name:RADHA Relationship:Daughter Address: Work Phone: City:[place] Alternate Phone: State/Zip Code:[place] Email: Financial Information Financial Class:Medicare Primary Plan Desc:MEDICARE INPATIENT Primary Plan Number:[id number] Secondary Plan Desc:[place] Secondary Plan Number:[id number] Assessment Information [facility] CM Progress Note CM Note CM Note Notes: Patient admitted for an infected surgical site. She had her 2nd and 5th digits amputated by Dr Tripathi on 08/13/17(secondary to gangrene) and is complaining of pain and erythema to the site. Dr Tripathi, hospital medicine, nephrology, and ID are following. Patient lives at [facility]. She has a local daughter. She is a chronic dialysis patient on a MWF schedule at the [facility] (Dr Nikhil Villaseñor). A palliative care consult might be appropriate; I have notified hospitalist. Case Management will follow. Date Signed: 08/20/2017 03:07 PM Electronically Signed By:Gail Jim RN SRAVAN SRAVAN Length of stay for Answers: 4-6 days current admission Acuity / Level of Answers: Yes Care: Did the patient have an inpatient admission? Comorbidities - select Answers: Coronary Artery Disease all that apply Diabetes (uncontrolled or controlled) Moderate or severe liver or renal disease Other Notes: CKD # of Emergency department Answers: 1-2 visits in the last 6 months Social determinants Answers: Mental health diagnosis (anxiety, depression, pers onality disorders, etc.) Score: 19 Date Signed: 08/24/2017 12:24 PM Electronically Signed By:Nehal Easley RN [facility] CM Progress Note CM Note CM Note Notes: Pt dialyzed today. Palliative scheduled tomorrow 08/22/17 at noon w dghtr and son participating by phone. Updates sent to [facility]. Pt moved to this afternoon. Date Signed: 08/21/2017 03:20 PM Electronically Signed By:HARLEY Landrum [facility] CM Progress Note CM Note CM Note Notes: Palliative care conference today; pt interested in [facility] palliative care. Referral sent through [employer] and discussed w/Moon from [facility]. She will speak w/family and let us know if family would like to meet during hospitalization. CM will follow. Date Signed: 08/22/2017 02:39 PM Electronically Signed By:Eileen Sierra RN Case Management Discharge Plan Note Case Management Discharge Discharge Order Complete? Answers: Yes Patient to Obtain Answers: Other Notes: [place] skilled RN Medications facility Transportation Arranged Answers: [facility] Stretcher Transport will Pick (Date 08/24/2017 02:30 PM & Time) Case Management Transport Answers: Yes Form Complete Faxed Final Orders Answers: Yes Agency/Facility Transfer Answers: Yes Report Printed & Faxed to Receiving Agency Discharge Comments Notes: 08/24/2017 Case Management Note Arranged stretcher transport d/t open ulcer on bottom of amputated ankle and above the knee amputation on other extremity. Pt unable to bear weight and has been bed bound during hospital stay. Notified [facility] of d/c. Faxed final orders. Completed PCS form. PASSR not required as pt lives at [facility] in LTC. Faxed d/c orders to [facility] and requested following pt at [facility] Date Signed: 08/24/2017 12:27 PM Electronically Signed By:Nehal Easley RN Intervention Information Intervention Type:CHEN-Refused Date of Service:08/20/2017 11:44 AM Patient Type:Observation Staff Member:Nelida Calzada Hours: Discipline: Severity: Comment:Patient is under the impression she wi ll be changed to inpatient status for her surgery and does not wish to sign the CHEN form.
== END 2017-08-24 15:10 | DRG 252 ==
LOC: EDUNIT# → F3N 20:10 → OBSVTOIN 08-20 10:26 → F1N 08-21 12:40
PROVIDERS: ADMIT Internal Medicine; ATTEND Internal Medicine
PROC: 02HV33Z Insertion of Infusion Device into Superior Vena Cava, Percutaneous Approach (ICD-10-PCS; principal; 2017-08-23 12:45)
PROC: 03LY3ZZ Occlusion of Upper Artery, Percutaneous Approach (ICD-10-PCS; principal; 2017-08-23 12:45)
DX: T82.898A Other specified complication of vascular prosthetic devices, implants and grafts, initial encounter (principal); L03.113 Cellulitis of right upper limb; Z89.022 Acquired absence of left finger(s); E11.22 Type 2 diabetes mellitus with diabetic chronic kidney disease; N18.6 End stage renal disease; Z99.2 Dependence on renal dialysis; E11.40 Type 2 diabetes mellitus with diabetic neuropathy, unspecified; E11.59 Type 2 diabetes mellitus with other circulatory complications; I73.9 Peripheral vascular disease, unspecified; G93.41 Metabolic encephalopathy; R04.0 Epistaxis; E87.1 Hypo-osmolality and hyponatremia; K59.03 Drug induced constipation; T40.605A Adverse effect of unspecified narcotics, initial encounter; G89.29 Other chronic pain; I48.91 Unspecified atrial fibrillation; I25.10 Atherosclerotic heart disease of native coronary artery without angina pectoris; I10 Essential (primary) hypertension; Z85.3 Personal history of malignant neoplasm of breast; Z79.82 Long term (current) use of aspirin; Z89.421 Acquired absence of other right toe(s); Z66 Do not resuscitate
CPT/HCPCS: 96365; C1750; G0378; J1170; J1642; J1644; J1815; J2060; J2270; J2370; J2440; J2704; J3010; J3370; Q9961